=== PATIENT | female | born 1945 | race Hispanic/Latino ===

== ENCOUNTER 2018-08-02 20:47 | Inpatient (IN) | payer OTHER ==
[~2018-08-02] VITALS: Ht 160 cm; Wt 117.3 kg
[2018-08-02] MEDS ORDERED: ACETAMINOPHEN EXTRA STRENGTH 500 MG TABLET ONE (21:20)
[2018-08-02] MEDS ORDERED: FAMOTIDINE 20MG TAB 20 MG TAB ONE (21:33)
[2018-08-02 21:39] LABS: BASOPHILS % (AUTO) 0.3 % (0.0-5.0); EOSINOPHILS % (AUTO) 6.4 % (0.0-8.0); HEMATOCRIT 35.7 % (36-48); LYMPHOCYTES % (AUTO) 8.8 % (21.0-51.0); MEAN CORPUSCULAR HEMOGLOBIN 24.3 pg (27.0-33.0); MEAN CORPUSCULAR HGB CONC 32.8 g/dL (32.0-36.0); MEAN CORPUSCULAR VOLUME 74.2 fL (79-99); MONOCYTES % (AUTO) 8.7 % (3.0-13.0); NEUTROPHILS % (AUTO) 75.8 % (40.0-77.0); NUCLEATED RED BLOOD CELLS 0.1 % (0.0-0.19); PLATELET COUNT (AUTO) 169 K/uL (130-400); RED BLOOD CELL COUNT(AUTO) 4.81 MIL/uL (4.00-5.50); RED CELL DISTRIBUTION WIDTH 16.4 % (11.0-15.5); WHITE BLOOD COUNT (AUTO) 3.1 K/uL (4.8-10.8)
[2018-08-02 21:54] LABS: CARBON DIOXIDE 29 mmol/L (21-32); CHLORIDE 95 mmol/L (101-111); CREATININE 0.8 mg/dL (0.5-1.5); GLOMERULAR FILTR. RATE CALC 75 mL/min (>60); GLUCOSE,RANDOM 170 mg/dL (70-105); POTASSIUM 4.1 mmol/L (3.5-5.1); SODIUM SERUM 131 mmol/L (136-145); UREA NITROGEN, BLOOD 13 mg/dL (7-18)
[2018-08-02 22:00] LABS: INR 0.99 (0.85-1.15); PARTIAL THROMBOPLASTIN TIME 27.5 SEC (26.3-35.5); PROTHROMBIN TIME 10.4 SEC (9.6-11.6)
[2018-08-02 22:03] LABS: RAPID GROUP A STREP NEGATIVE (NEGATIVE)
[2018-08-02 22:04] LABS: ALANINE AMINOTRANSFERASE 18 U/L (12-78); ALBUMIN 2.9 g/dL (3.5-5.0); ASPARTATE AMINOTRANSFERASE 26 U/L (10-37); BILIRUBIN,TOTAL 0.2 mg/dL (0.2-1.0); CREATINE KINASE, TOTAL 62 U/L (21-232); MYOGLOBIN 28 ng/mL (10-92); TOTAL PROTEIN, SERUM 6.6 g/dL (6.0-8.3); TROPONIN I < 0.04 ng/mL (0.00-0.06)
[2018-08-02] MEDS ORDERED: MORPHINE SULFATE 4 MG/1ML SYG ONE (22:49)
[2018-08-02] MEDS ORDERED: ONDANSETRON HCL 4 MG/2 ML VIAL ONE (22:49)
[2018-08-03 01:52] LABS: APPEARANCE,URINE Clear (CLEAR); BILIRUBIN,URINE Negative (NEGATIVE); COLOR,URINE Yellow (YELLOW); GLUCOSE, URINE (UA) Negative (NEGATIVE); KETONES,URINE 15 mg/dL (NEGATIVE); LEUKOCYTE ESTERASE ,URINE Negative (NEGATIVE); NITRATE,URINE Negative (NEGATIVE); OCCULT BLOOD,URINE Negative (NEGATIVE); PROTEIN,URINE Negative (NEGATIVE)
[2018-08-03 05:40] VITALS: BP 127/63
[2018-08-03] MEDS ORDERED: PHARMACY COMMUNICATION MISC SCH (05:45)
[2018-08-03] MEDS ORDERED: CYAN-35 PO (06:59)
[2018-08-03] MEDS ORDERED: LOSA50TA64 PO (06:59)
[2018-08-03] MEDS ORDERED: KETO5DRO82 OP (06:59)
[2018-08-03] MEDS ORDERED: HYDR25TA PO (06:59)
[2018-08-03] MEDS ORDERED: DIPH25TA PO (06:59)
[2018-08-03] MEDS ORDERED: GLIP5TAB11 PO (06:59)
[2018-08-03] MEDS ORDERED: METF-444 PO (06:59)
[2018-08-03] MEDS ORDERED: LEVO75 PO (06:59)
[2018-08-03] MEDS ORDERED: SIMV20TA6 PO (06:59)
[2018-08-03 08:06] VITALS: BP 127/70
[2018-08-03] MEDS: GLIPIZIDE XL 2.5MG TAB PO SCH (08:22)
[2018-08-03 08:55] LABS: HEMATOCRIT 34.7 % (36-48); MEAN CORPUSCULAR HEMOGLOBIN 23.8 pg (27.0-33.0); MEAN CORPUSCULAR HGB CONC 32.1 g/dL (32.0-36.0); MEAN CORPUSCULAR VOLUME 74.2 fL (79-99); NUCLEATED RED BLOOD CELLS 0.1 % (0.0-0.19); PLATELET COUNT (AUTO) 152 K/uL (130-400); RED BLOOD CELL COUNT(AUTO) 4.68 MIL/uL (4.00-5.50); RED CELL DISTRIBUTION WIDTH 17.2 % (11.0-15.5); WHITE BLOOD COUNT (AUTO) 3.9 K/uL (4.8-10.8)
[2018-08-03 08:56] LABS: CREATININE 0.8 mg/dL (0.5-1.5); POTASSIUM 4.1 mmol/L (3.5-5.1)
[2018-08-03] MEDS: LOSARTAN 50 MG TABLET PO SCH ×2 (09:00→09:28)
[2018-08-03] MEDS: KETOROLAC TROMETHAMINE OPTH 0.5% 5ML DROPS OP SCH ×3 (09:00→21:00)
[2018-08-03] MEDS: HYDROCHLOROTHIAZIDE 25 MG TABLET PO SCH ×2 (09:00→09:28)
[2018-08-03] MEDS: DOXYCYCLINE 100MG+NS 250ML 250 ML IV SCH ×3 (09:00→21:20)
[2018-08-03] MEDS: ONDANSETRON HCL MDV 20ML 2 MG/ML VIAL IVP PRN ×2 (09:26→17:35)
[2018-08-03] MEDS: LEVOFLOXACIN 500 MG/D5W 100 ML 100 ML IV SCH (09:28)
[2018-08-03 11:54] VITALS: BP 113/49
[2018-08-03] MEDS: METFORMIN HCL 500 MG TABLET PO SCH (16:17)
[2018-08-03 16:36] VITALS: BP 129/78
[2018-08-03 19:14] VITALS: BP 119/58
[2018-08-03] MEDS: SIMVASTATIN 20 MG TABLET PO SCH (21:00)
[2018-08-03 23:49] VITALS: BP 127/69
[2018-08-04] MEDS: ONDANSETRON HCL MDV 20ML 2 MG/ML VIAL IVP PRN ×2 (00:39→09:04)
[2018-08-04 03:19] VITALS: BP 117/49
[2018-08-04] MEDS: LEVOTHYROXINE 75 MCG TABLET PO SCH (06:20)
--- NOTE | 2018-08-04 07:12 | NUR ---
PATIENT UPDATE No complaints of pain, complained of feeling nauseous the whole night and that the zofran apparently is not doing anything for her at all. Called Dr. Perdomo on the cell phone at 2200 last night, left a message, no call back response. Patient given another zofran med at 0100 and pt slept afterwards. No vomiting episodes. kept on left arm precaution for now. Patient refused all scheduled meds even the eye drops because apparently everything makes her nauseous.
[2018-08-04 07:54] VITALS: BP 121/41
[2018-08-04] MEDS: METFORMIN HCL 500 MG TABLET PO SCH ×3 (08:00→17:00)
[2018-08-04] MEDS: GLIPIZIDE XL 2.5MG TAB PO SCH ×2 (08:00→08:31)
[2018-08-04] MEDS: HYDROCHLOROTHIAZIDE 25 MG TABLET PO SCH (08:30)
[2018-08-04] MEDS: LEVOFLOXACIN 500 MG/D5W 100 ML 100 ML IV SCH (08:30)
[2018-08-04] MEDS: LOSARTAN 50 MG TABLET PO SCH (08:31)
[2018-08-04] MEDS: KETOROLAC TROMETHAMINE OPTH 0.5% 5ML DROPS OP SCH ×3 (09:00→21:00)
[2018-08-04 11:06] VITALS: BP 119/85
[2018-08-04] MEDS ORDERED: LACTATED RINGERS 1000ML 1,000 ML IV ONE (14:11)
[2018-08-04] MEDS: LACTATED RINGERS 1000ML 1,000 ML IV SCH (14:15)
[2018-08-04] MEDS: DOXYCYCLINE 100MG+NS 250ML 250 ML IV SCH (14:16)
[2018-08-04 14:37] LABS: HEMATOCRIT 34.3 % (36-48); MEAN CORPUSCULAR HEMOGLOBIN 24.3 pg (27.0-33.0); MEAN CORPUSCULAR HGB CONC 32.5 g/dL (32.0-36.0); MEAN CORPUSCULAR VOLUME 74.6 fL (79-99); NUCLEATED RED BLOOD CELLS 0.1 % (0.0-0.19); PLATELET COUNT (AUTO) 135 K/uL (130-400); RED CELL DISTRIBUTION WIDTH 16.8 % (11.0-15.5); WHITE BLOOD COUNT (AUTO) 2.8 K/uL (4.8-10.8)
[2018-08-04 14:49] LABS: BILIRUBIN,DIRECT 0.1 mg/dL (0.0-0.3); BILIRUBIN,TOTAL 0.3 mg/dL (0.2-1.0); CREATININE 0.7 mg/dL (0.5-1.5); POTASSIUM 3.8 mmol/L (3.5-5.1); TOTAL PROTEIN, SERUM 6.9 g/dL (6.0-8.3)
[2018-08-04 15:20] LABS: BAND NEUTROPHILS % (MANUAL) 11 % (0-2); EOSINOPHILS % (MANUAL) 4 % (1-6); LYMPHOCYTES % (MANUAL) 26 % (22-44); MONOCYTES % (MANUAL) 6 % (2-9); SEGMENTED NEUTROPHILS % 53 % (40-70)
[2018-08-04 15:22] LABS: PLATELET MORPHOLOGY COMMENT GIANT PLTS PRESENT
[2018-08-04 16:42] VITALS: BP 130/54
[2018-08-04 19:38] VITALS: BP 127/65
[2018-08-04] MEDS: SIMVASTATIN 20 MG TABLET PO SCH (21:00)
[2018-08-04 23:26] VITALS: BP 126/63
[2018-08-05] MEDS: LACTATED RINGERS 1000ML 1,000 ML IV SCH (02:00)
[2018-08-05] MEDS: DOXYCYCLINE 100MG+NS 250ML 250 ML IV SCH ×2 (02:01→11:01)
[2018-08-05 03:25] VITALS: BP 126/57
[2018-08-05 04:29] LABS: HEMATOCRIT 33.9 % (36-48); MEAN CORPUSCULAR HEMOGLOBIN 23.9 pg (27.0-33.0); MEAN CORPUSCULAR HGB CONC 32.5 g/dL (32.0-36.0); MEAN CORPUSCULAR VOLUME 73.5 fL (79-99); PLATELET COUNT (AUTO) 151 K/uL (130-400); RED BLOOD CELL COUNT(AUTO) 4.62 MIL/uL (4.00-5.50); RED CELL DISTRIBUTION WIDTH 16.8 % (11.0-15.5); WHITE BLOOD COUNT (AUTO) 3.6 K/uL (4.8-10.8)
[2018-08-05 04:33] LABS: CREATININE 0.6 mg/dL (0.5-1.5); POTASSIUM 3.7 mmol/L (3.5-5.1)
[2018-08-05] MEDS: LEVOTHYROXINE 75 MCG TABLET PO SCH (07:03)
[2018-08-05 08:00] VITALS: BP 115/71
[2018-08-05] MEDS: METFORMIN HCL 500 MG TABLET PO SCH ×2 (08:00→09:16)
[2018-08-05] MEDS: KETOROLAC TROMETHAMINE OPTH 0.5% 5ML DROPS OP SCH (09:00)
[2018-08-05] MEDS: LEVOFLOXACIN 500 MG/D5W 100 ML 100 ML IV SCH (09:15)
[2018-08-05] MEDS: LOSARTAN 50 MG TABLET PO SCH (09:17)
[2018-08-05] MEDS: HYDROCHLOROTHIAZIDE 25 MG TABLET PO SCH (09:17)
[2018-08-05] MEDS: GLIPIZIDE XL 2.5MG TAB PO SCH (09:17)
[2018-08-05 12:00] VITALS: BP 116/64
--- NOTE | 2018-08-05 15:00 | NUR ---
PT D/C WITH TEACH BACK SUCCESSFUL PT DENIES SOB OR CHEST PAIN RX GIVEN IV REMOVED, CATHETER INTACT REFER TO D/C SUMMARY
== END 2018-08-05 16:03 | disposition home or self-care (01) | DRG 866 ==
LOC: EDH 20:47 → OBSVTOIN 08-03 03:20 → EDHIP 08-03 03:20 → 4BH 08-03 05:50
PROVIDERS: ADMIT Internal Medicine Critical Care Medicine; ATTEND Internal Medicine Critical Care Medicine
DX: T88.1XXA Other complications following immunization, not elsewhere classified, initial encounter (principal); L03.114 Cellulitis of left upper limb; N39.0 Urinary tract infection, site not specified; Z68.42 Body mass index [BMI] 45.0-49.9, adult; B96.20 Unspecified Escherichia coli [E. coli] as the cause of diseases classified elsewhere; E03.9 Hypothyroidism, unspecified; E11.9 Type 2 diabetes mellitus without complications; E66.01 Morbid (severe) obesity due to excess calories; E78.5 Hyperlipidemia, unspecified; I10 Essential (primary) hypertension; K80.20 Calculus of gallbladder without cholecystitis without obstruction; T50.Z95A Adverse effect of other vaccines and biological substances, initial encounter; Y84.8 Other medical procedures as the cause of abnormal reaction of the patient, or of later complication, without mention of misadventure at the time of the procedure; Z88.0 Allergy status to penicillin; Z88.8 Allergy status to other drugs, medicaments and biological substances; Z91.018 Allergy to other foods; Y92.89 Other specified places as the place of occurrence of the external cause
CPT/HCPCS: 36415; 71045; 76700; 80048; 80053; 80076; 81003; 82150; 82550; 82948; 83605; 83690; 83874; 84484; 85025; 85027; 85610; 85730; 87040; 87077; 87088; 87186; 87804; 87880; 93005; G0378; J1956; J2270; J2405; J3490; J7120

== ENCOUNTER 2021-12-22 17:05 | Observation (INO) | payer OTHER ==
[~2021-12-22] VITALS: Ht 157.5 cm; Wt 113.9 kg
[~2021-12-22 17:05] MED LIST: CYAN-35 PO; GLIP5TAB11 PO; HYDR25TA PO; KETO5DRO82 OP; LEVO75 PO; LOSA50TA64 PO; METF-444 PO; SIMV-43 PO
[2021-12-22 18:52] LABS: HEMATOCRIT 37.1 % (36-48); MEAN CORPUSCULAR HEMOGLOBIN 23.5 pg (27.0-33.0); MEAN CORPUSCULAR HGB CONC 30.7 g/dL (32.0-36.0); MEAN CORPUSCULAR VOLUME 76.3 fL (79-99); PLATELET COUNT (AUTO) 250 K/uL (130-400); RED BLOOD CELL COUNT(AUTO) 4.86 MIL/uL (4.00-5.50); RED CELL DISTRIBUTION WIDTH 15.4 % (11.0-15.5); WHITE BLOOD COUNT (AUTO) 11.9 K/uL (4.8-10.8)
[2021-12-22] MEDS: 0.9%NACL 1000ML 1,000 ML IV SCH (19:00)
[2021-12-22 19:16] LABS: ALBUMIN 3.2 g/dL (3.5-5.0); CREATININE 0.8 mg/dL (0.5-1.5); POTASSIUM 3.7 mmol/L (3.5-5.1)
[2021-12-22 19:30] VITALS: BP 118/40
[2021-12-22 20:17] LABS: APPEARANCE,URINE CLEAR (CLEAR); BILIRUBIN,URINE NEGATIVE (NEGATIVE); COLOR,URINE YELLOW (YELLOW); GLUCOSE, URINE (UA) NEGATIVE (NEGATIVE); KETONES,URINE NEGATIVE (NEGATIVE); LEUKOCYTE ESTERASE ,URINE TRACE (NEGATIVE); NITRATE,URINE NEGATIVE (NEGATIVE); OCCULT BLOOD,URINE NEGATIVE (NEGATIVE); PH,URINE 5.5 (5.0-8.0); PROTEIN,URINE NEGATIVE (NEGATIVE); UROBILINOGEN,URINE 0.2 mg/dL (0.2-1.0)
[2021-12-22 20:26] LABS: BACTERIA,URINE Few /HPF (None Seen); RBC,URINE None Seen /HPF (0-1); SQUAMOUS EPITHELIAL CELL,UR Few /HPF (0-2); WBC,URINE 0-1 /HPF (0-1)
[2021-12-22] MEDS ORDERED: GABA300S PO (20:44)
[2021-12-22] MEDS ORDERED: METF-446 PO (20:44)
[2021-12-22] MEDS ORDERED: VITA-300 PO (20:44)
[2021-12-22] MEDS: INSULIN HUMULIN R 100 UNIT/ML 3ML SQ SCH (21:00)
[2021-12-22] MEDS: GABAPENTIN 300 MG CAPSULE PO SCH (21:00)
[2021-12-22] MEDS ORDERED: LEVOFLOXACIN 500 MG/D5W 100 ML 100 ML IV SCH (21:00)
[2021-12-22] MEDS: METRONIDAZOLE 500MG/100ML BAG 100 ML IVPB SCH (22:11)
[2021-12-22 22:50] VITALS: BP 133/60
[2021-12-23 00:39] VITALS: BP 140/68
[2021-12-23 03:17] VITALS: BP 134/50
[2021-12-23] MEDS: 0.9%NACL 1000ML 1,000 ML IV SCH (03:24)
[2021-12-23] MEDS: METRONIDAZOLE 500MG/100ML BAG 100 ML IVPB SCH (05:33)
[2021-12-23] MEDS: INSULIN HUMULIN R 100 UNIT/ML 3ML SQ SCH ×3 (06:00→06:14)
[2021-12-23] MEDS ORDERED: MAGNESIUM CITRATE 296 ML SOLUTION PO SCH (06:30)
[2021-12-23 06:40] LABS: BASOPHILS % (AUTO) 0.3 % (0.0-5.0); EOSINOPHILS % (AUTO) 0.8 % (0.0-8.0); HEMATOCRIT 36.3 % (36-48); LYMPHOCYTES % (AUTO) 14.5 % (21.0-51.0); MEAN CORPUSCULAR HEMOGLOBIN 23.8 pg (27.0-33.0); MEAN CORPUSCULAR HGB CONC 31.1 g/dL (32.0-36.0); MEAN CORPUSCULAR VOLUME 76.6 fL (79-99); MONOCYTES % (AUTO) 4.6 % (3.0-13.0); NEUTROPHILS % (AUTO) 79.4 % (40.0-77.0); PLATELET COUNT (AUTO) 243 K/uL (130-400); RED BLOOD CELL COUNT(AUTO) 4.74 MIL/uL (4.00-5.50); RED CELL DISTRIBUTION WIDTH 15.6 % (11.0-15.5); WHITE BLOOD COUNT (AUTO) 9.6 K/uL (4.8-10.8)
[2021-12-23] MEDS ORDERED: LEVOTHYROXINE 75 MCG TABLET PO SCH (07:30)
[2021-12-23 08:00] VITALS: BP 119/65
[2021-12-23 08:10] LABS: HEMOGLOBIN A1C 6.5 % (4.0-6.0)
[2021-12-23 08:27] LABS: ERYTHROCYTE SEDIMENTATION RATE 46 MM/HR (0-30)
[2021-12-23] MEDS ORDERED: CYANOCOBALAMIN (VITAMIN B-12) 1,000 MCG TABLET PO SCH (09:00)
[2021-12-23] MEDS ORDERED: LOSARTAN 50 MG TABLET PO SCH (09:00)
[2021-12-23] MEDS ORDERED: HYDROCHLOROTHIAZIDE 25 MG TABLET PO SCH (09:00)
[2021-12-23 09:17] LABS: ALBUMIN 2.9 g/dL (3.5-5.0); CREATININE 0.6 mg/dL (0.5-1.5); CRP QUANTITATIVE 30.1 mg/L (0.00-9.0); MAGNESIUM 1.5 mg/dL (1.80-2.40); PHOSPHORUS 3.8 mg/dL (2.5-4.9); POTASSIUM 3.6 mmol/L (3.5-5.1); THYROID STIMULATING HORMONE 2.95 uIU/mL (0.36-3.74); TOTAL PROTEIN, SERUM 6.5 g/dL (6.0-8.3)
[2021-12-23] MEDS: GABAPENTIN 300 MG CAPSULE PO SCH (10:07)
[2021-12-23 11:15] VITALS: BP 126/57
== END 2021-12-23 15:00 | disposition home or self-care (01) ==
LOC: EDH 17:05 → WSH 17:06 → 3DH 23:59
PROVIDERS: ADMIT Internal Medicine; ATTEND Internal Medicine
DX: R14.0 Abdominal distension (gaseous) (principal); R10.9 Unspecified abdominal pain; K80.20 Calculus of gallbladder without cholecystitis without obstruction; K59.00 Constipation, unspecified; I10 Essential (primary) hypertension; E11.9 Type 2 diabetes mellitus without complications; K57.90 Diverticulosis of intestine, part unspecified, without perforation or abscess without bleeding; M47.815 Spondylosis without myelopathy or radiculopathy, thoracolumbar region; R42 Dizziness and giddiness; Z79.84 Long term (current) use of oral hypoglycemic drugs; Z79.899 Other long term (current) drug therapy; Z98.890 Other specified postprocedural states
CPT/HCPCS: 96361 ×3; 96365; 96368; 80053 ×2; 85027; 87088; 82948 ×6; 83605 ×3; 81001; 36415 ×2; 74176; 96366; 83036; 84443; 83540; 83550; 83735; 84100; 82728; 85025; 85651; 85045; 87040 ×2; 82746; 86140; 84145; G0378 ×17; J1956 ×2; J3490 ×2; J7030